=== PATIENT | female | born 1930 | race Caucasian/White ===

== ENCOUNTER 2018-10-28 09:37 | Outpatient (CLI) | END 2018-10-28 09:38 | disposition home or self-care (01) | LOC: AMBL 09:37 | PROVIDERS: ATTEND Internal Medicine Geriatric Medicine | DX: M25.562 Pain in left knee (principal) ==

== ENCOUNTER 2020-04-24 12:45 | Inpatient (IN) ==
[2020-04-24] MEDS ORDERED: MIRALAX PO PRN (14:47)
[2020-04-24 15:17] LABS: BASOPHILS % (AUTO) 0.3 % (0.0-3.0); EOSINOPHILS # (AUTO) 0.1 K/ul (0.0-0.7); EOSINOPHILS % (AUTO) 1.1 % (0.0-7.0); HEMATOCRIT 35.2 % (37.0-47.0); HEMOGLOBIN 11.5 g/dl (12.0-16.0); IMMATURE GRANULOCYTE # (AUTO) 0.1 (0.0-1.0); IMMATURE GRANULOCYTE % (AUTO) 0.5 % (0.0-5.0); LYMPHOCYTES # (AUTO) 1.2 K/uL (0.60-3.4); LYMPHOCYTES % (AUTO) 11.9 (10.0-50.0); MEAN CORPUSCULAR HGB CONC 32.7 (31.8-35.4); MEAN CORPUSCULAR VOLUME 100.9 fl (81.0-99.0); MONOCYTES # (AUTO) 0.6 K/uL (0.4-2.0); MONOCYTES % (AUTO) 5.8 (0-10); NEUTROPHILS # (AUTO) 8.1 K/ul (2.0-6.9); NEUTROPHILS % (AUTO) 80.4 % (42.2-75.2); PLATELET COUNT 245 10^3/uL (140-440); RDW COEFFICIENT OF VARIATION 14.6 % (11.6-14.8); RED BLOOD COUNT 3.49 10^6/ul (4.20-5.40); WHITE BLOOD COUNT 10.07 K/ul (4.6-10.2)
[2020-04-24 15:27] VITALS: BMI 21.7
[2020-04-24 15:30] LABS: ALANINE AMINOTRANSFERASE 12.6 U/L (0-35); ALBUMIN 3.28 g/dL (3.5-5.0); ALKALINE PHOSPHATASE 104.6 U/L (53-141); ASPARTATE AMINO TRANSFERASE 25.9 U/L (14-36); BILIRUBIN,TOTAL 0.56 mg/dL (0.2-1.3); BLOOD UREA NITROGEN 47.7 mg/dL (7-17); CALCIUM 10.36 mg/dL (8.4-10.2); CHLORIDE 103.4 mmol/L (98-107); CREATININE 2.15 mg/dL (0.60-1.30); GLUCOSE 90.5 mg/dL (74-106); POTASSIUM 3.77 mmol/L (3.5-5.1); SODIUM 140.2 mmol/L (134.5-145); TOTAL PROTEIN 6.51 g/dL (6.3-8.2)
--- NOTE | 2020-04-24 15:52 | DI ---
EXAM: Chest one view, frontal view only. HISTORY: Cough. COMPARISON: None. FINDINGS: The heart size is normal. Atherosclerotic calcifications are present. There is no pulmon augusto vascular congestion. The lungs are clear. No pleural effusion or pneumothorax is seen. No acut e osseous abnormality is identified. IMPRESSION: No acute cardiopulmonary process.
[2020-04-24 15:54] LABS: ERYTHROCYTE SEDIMENTATION RATE 23 mm/hr (0-20)
[2020-04-24] MEDS ORDERED: ELIQUIS PO ONE (16:00)
[2020-04-24 17:01] LABS: PARTIAL THROMBOPLASTIN TIME 23.4 SEC (23.9-40.0); PROTHROMBIN TIME 10.7 SEC (9.3-11.0)
[2020-04-24 17:33] LABS: BILIRUBIN,URINE Negative (NEGATIVE); CLARITY,URINE Slightly (CLEAR); COLOR,URINE Yellow (YELLOW); GLUCOSE, URINE (UA) Negative (NEGATIVE); KETONES,URINE Negative (NEGATIVE); LEUKOCYTE ESTERASE ,URINE 2+ (NEGATIVE); NITRITE,URINE Negative (NEGATIVE); PH,URINE 8.5 (5-9); PROTEIN,URINE 1+ (NEGATIVE); URINE, BLOOD Trace-intact (NEGATIVE); UROBILINOGEN,URINE 0.2 (0.2)
[2020-04-24 17:36] LABS: BACTERIA,URINE 2+ (NOT PRESENT); URINE WBC, MICROSCOPIC 30-50 (0-2)
[2020-04-24] MEDS: DEXTROSE 5%-1/2NS IV SOLUTION 1,000 ML IV SCH (18:01)
[2020-04-24] MEDS: [UNRECOGNIZED DRUG - OTHER] PO SCH (20:22)
[2020-04-24] MEDS: ELIQUIS PO SCH (20:22)
[2020-04-24] MEDS: NON-FORMULARY MEDICATION (Melatonin 5 mg Tablet) PO SCH (20:22)
[2020-04-25] MEDS: DEXTROSE 5%-1/2NS IV SOLUTION 1,000 ML IV SCH ×3 (04:38→22:51)
[2020-04-25] MEDS: LASIX TAB PO SCH (05:46)
[2020-04-25] MEDS: PROTONIX PO SCH (05:46)
[2020-04-25 05:59] LABS: ALBUMIN 2.85 g/dL (3.5-5.0); BLOOD UREA NITROGEN 37.9 mg/dL (7-17); CALCIUM 9.58 mg/dL (8.4-10.2); CARBON DIOXIDE 29.6 mmol/L (22-30.0); CHLORIDE 101.8 mmol/L (98-107); CREATININE 1.87 mg/dL (0.60-1.30); GLUCOSE 110.8 mg/dL (74-106); PHOSPHORUS 2.47 mg/dL (2.5-4.5); POTASSIUM 3.53 mmol/L (3.5-5.1); SODIUM 134.9 mmol/L (134.5-145)
[2020-04-25] MEDS ORDERED: CALMOSEPTINE OINTMENT TP PRN (06:24)
[2020-04-25] MEDS: NON-FORMULARY MEDICATION (Cranberry 500 mg Capsule) PO SCH (08:51)
[2020-04-25] MEDS: [UNRECOGNIZED DRUG - OTHER] PO SCH ×2 (08:51→21:03)
[2020-04-25] MEDS: DONEPEZIL 23 MG PO SCH (08:52)
[2020-04-25] MEDS: ELIQUIS PO SCH (08:55)
[2020-04-25] MEDS ORDERED: ARICEPT PO SCH (09:00)
--- NOTE | 2020-04-25 13:54 | NM ---
Exam: Perfusion scintigraphy Date of exam: 04/25/2020 Radiopharmaceutical: 5.1 mCi MAA i.v. Reason for exam: DVT left lower extremity FINDINGS: The comparison chest radiograph performed on 04/24/2020 demonstrates no pneumothorax or pleural effus ion. The perfusion images show multiple segmental and nonsegmental perfusion defects in both lungs. Impression: Critical finding/critical result: High likelihood ratio for pulmonary embolus. Findings were discussed directly with the patient's nurse at 1350 hours on 04/25/2020.
[2020-04-25] MEDS ORDERED: ELIQUIS PO SCH (21:00)
[2020-04-25] MEDS: NON-FORMULARY MEDICATION (Melatonin 5 mg Tablet) PO SCH (21:05)
[2020-04-25] MEDS: LOVENOX SUBCUT SCH (21:05)
[2020-04-26] MEDS: LASIX TAB PO SCH (05:58)
[2020-04-26] MEDS: PROTONIX PO SCH (05:58)
[2020-04-26] MEDS: NON-FORMULARY MEDICATION (Cranberry 500 mg Capsule) PO SCH (08:48)
[2020-04-26] MEDS: DONEPEZIL 23 MG PO SCH (08:48)
[2020-04-26] MEDS: [UNRECOGNIZED DRUG - OTHER] PO SCH ×2 (08:50→21:12)
[2020-04-26] MEDS: LOVENOX SUBCUT SCH ×2 (08:51→21:11)
[2020-04-26] MEDS: DEXTROSE 5%-1/2NS IV SOLUTION 1,000 ML IV SCH ×2 (10:57→21:59)
[2020-04-26] MEDS: NON-FORMULARY MEDICATION (Melatonin 5 mg Tablet) PO SCH (21:19)
--- NOTE | 2020-04-26 21:44 | CT ---
EXAM: Noncontrast chest CT HISTORY: Probable pulmonary embolism on nuclear medicine pulmonary perfusion scan COMPARISON: None available TECHNIQUE: Axial noncontrast CT of the chest with sagittal and coronal reformats. FINDINGS: There is mild patient motion artifact. The heart is mildly enlarged. Mild atherosclerotic calcifica tions are seen. No mediastinal lymphadenopathy is identified. Calcified mediastinal and left hilar lymph nodes are noted. Mild right middle lobe, lingular bilateral lower lobe atelectasis is identified. A left lower lobe c alcified granuloma is seen. No consolidation, pleural effusion or pneumothorax is identified. A gallstone is seen. There is a right adrenal nodule measuring 2.3 cm and 16 HU. A left renal infer ior pole cyst is present measuring 1.6 cm. Diverticulosis is partially imaged. There are mild degen erative changes of the thoracic spine. IMPRESSION: No acute cardiopulmonary findings. Mild atelectasis. No focal infiltrate. Mild cardiomegaly. Indeterminate right adrenal nodule. Follow-up adrenal mass protocol MRI or CT could further evaluate . Nondiagnostic evaluation for pulmonary emboli due to noncontrast technique.
[2020-04-27] MEDS: PROTONIX PO SCH (05:48)
[2020-04-27] MEDS: LASIX TAB PO SCH (05:48)
[2020-04-27] MEDS: [UNRECOGNIZED DRUG - OTHER] PO SCH ×2 (08:51→20:53)
[2020-04-27] MEDS: NON-FORMULARY MEDICATION (Cranberry 500 mg Capsule) PO SCH (08:52)
[2020-04-27] MEDS: DONEPEZIL 23 MG PO SCH (08:52)
[2020-04-27] MEDS: LOVENOX SUBCUT SCH ×2 (08:55→20:52)
[2020-04-27] MEDS: ROCEPHIN 1 GM/50 ML D5W 1 GM/50 ML BAG IV SCH (12:15)
[2020-04-27] MEDS: DEXTROSE 5%-1/2NS IV SOLUTION 1,000 ML IV SCH ×3 (12:16→23:26)
[2020-04-27] MEDS: NON-FORMULARY MEDICATION (Melatonin 5 mg Tablet) PO SCH (21:48)
[2020-04-28 04:25] LABS: BASOPHILS % (AUTO) 0.2 % (0.0-3.0); EOSINOPHILS # (AUTO) 0.1 K/ul (0.0-0.7); EOSINOPHILS % (AUTO) 1.1 % (0.0-7.0); HEMATOCRIT 27.7 % (37.0-47.0); HEMOGLOBIN 9.3 g/dl (12.0-16.0); IMMATURE GRANULOCYTE # (AUTO) 0.1 (0.0-1.0); IMMATURE GRANULOCYTE % (AUTO) 1.5 % (0.0-5.0); LYMPHOCYTES # (AUTO) 0.9 K/uL (0.60-3.4); LYMPHOCYTES % (AUTO) 18.9 (10.0-50.0); MEAN CORPUSCULAR HEMOGLOBIN 32.7 pg (27.0-31.0); MEAN CORPUSCULAR HGB CONC 33.6 (31.8-35.4); MEAN CORPUSCULAR VOLUME 97.5 fl (81.0-99.0); MONOCYTES # (AUTO) 0.5 K/uL (0.4-2.0); MONOCYTES % (AUTO) 10.8 (0-10); NEUTROPHILS # (AUTO) 3.2 K/ul (2.0-6.9); NEUTROPHILS % (AUTO) 67.5 % (42.2-75.2); PLATELET COUNT 229 10^3/uL (140-440); RDW COEFFICIENT OF VARIATION 14.1 % (11.6-14.8); RED BLOOD COUNT 2.84 10^6/ul (4.20-5.40); WHITE BLOOD COUNT 4.71 K/ul (4.6-10.2)
[2020-04-28 04:38] LABS: ALANINE AMINOTRANSFERASE 13.7 U/L (0-35); ALBUMIN 2.38 g/dL (3.5-5.0); ALKALINE PHOSPHATASE 84.4 U/L (53-141); ASPARTATE AMINO TRANSFERASE 22.8 U/L (14-36); BILIRUBIN,TOTAL 0.22 mg/dL (0.2-1.3); BLOOD UREA NITROGEN 14.6 mg/dL (7-17); CALCIUM 8.55 mg/dL (8.4-10.2); CARBON DIOXIDE 26.1 mmol/L (22-30.0); CHLORIDE 100.3 mmol/L (98-107); CREATININE 1.23 mg/dL (0.60-1.30); GLUCOSE 100.8 mg/dL (74-106); POTASSIUM 4.02 mmol/L (3.5-5.1); SODIUM 129.4 mmol/L (134.5-145); TOTAL PROTEIN 5.11 g/dL (6.3-8.2)
[2020-04-28] MEDS: LASIX TAB PO SCH (06:21)
[2020-04-28] MEDS: PROTONIX PO SCH (06:21)
[2020-04-28] MEDS: NON-FORMULARY MEDICATION (Cranberry 500 mg Capsule) PO SCH (09:52)
[2020-04-28] MEDS: DONEPEZIL 23 MG PO SCH (09:52)
[2020-04-28] MEDS: [UNRECOGNIZED DRUG - OTHER] PO SCH ×2 (09:53→20:34)
[2020-04-28] MEDS: LOVENOX SUBCUT SCH (09:54)
[2020-04-28] MEDS: DEXTROSE 5%-1/2NS IV SOLUTION 1,000 ML IV SCH ×3 (09:58→20:38)
[2020-04-28] MEDS: ROCEPHIN 1 GM/50 ML D5W 1 GM/50 ML BAG IV SCH (09:58)
[2020-04-28 11:18] LABS: OCCULT BLOOD SAMPLE 1 POSITIVE (NEGATIVE); OCCULT BLOOD SAMPLE 2 POSITIVE (NEGATIVE); OCCULT BLOOD SAMPLE 3 NO SPECIMEN RECEIVED (NEGATIVE)
[2020-04-28] MEDS: PROTONIX IV IVP SCH ×2 (11:47→20:44)
[2020-04-28 18:01] LABS: BASOPHILS % (AUTO) 0.2 % (0.0-3.0); EOSINOPHILS % (AUTO) 0.9 % (0.0-7.0); HEMATOCRIT 30.9 % (37.0-47.0); HEMOGLOBIN 10.3 g/dl (12.0-16.0); IMMATURE GRANULOCYTE % (AUTO) 0.7 % (0.0-5.0); LYMPHOCYTES % (AUTO) 21.8 (10.0-50.0); MEAN CORPUSCULAR HGB CONC 33.3 (31.8-35.4); MONOCYTES # (AUTO) 0.4 K/uL (0.4-2.0); MONOCYTES % (AUTO) 8.4 (0-10); PLATELET COUNT 239 10^3/uL (140-440); RDW COEFFICIENT OF VARIATION 14.4 % (11.6-14.8); RED BLOOD COUNT 3.12 10^6/ul (4.20-5.40); WHITE BLOOD COUNT 4.41 K/ul (4.6-10.2)
[2020-04-28 18:13] LABS: ALANINE AMINOTRANSFERASE 15.8 U/L (0-35); ALBUMIN 2.88 g/dL (3.5-5.0); ALKALINE PHOSPHATASE 106.4 U/L (53-141); ASPARTATE AMINO TRANSFERASE 25.1 U/L (14-36); BILIRUBIN,TOTAL 0.23 mg/dL (0.2-1.3); BLOOD UREA NITROGEN 12.2 mg/dL (7-17); CALCIUM 8.65 mg/dL (8.4-10.2); CHLORIDE 98.1 mmol/L (98-107); CREATININE 1.21 mg/dL (0.60-1.30); GLUCOSE 110.2 mg/dL (74-106); POTASSIUM 3.48 mmol/L (3.5-5.1); SODIUM 130.2 mmol/L (134.5-145); TOTAL PROTEIN 5.95 g/dL (6.3-8.2)
[2020-04-28] MEDS: NON-FORMULARY MEDICATION (Melatonin 5 mg Tablet) PO SCH (20:36)
[2020-04-29] MEDS: LASIX TAB PO SCH (05:56)
[2020-04-29] MEDS: ROCEPHIN 1 GM/50 ML D5W 1 GM/50 ML BAG IV SCH (09:34)
[2020-04-29] MEDS: NON-FORMULARY MEDICATION (Cranberry 500 mg Capsule) PO SCH (09:57)
[2020-04-29] MEDS: DONEPEZIL 23 MG PO SCH (09:57)
[2020-04-29] MEDS: PROTONIX IV IVP SCH ×2 (09:57→20:44)
[2020-04-29] MEDS: [UNRECOGNIZED DRUG - OTHER] PO SCH ×2 (10:03→20:45)
[2020-04-29] MEDS: DEXTROSE 5%-1/2NS IV SOLUTION 1,000 ML IV SCH (10:03)
[2020-04-29 12:34] LABS: OCCULT BLOOD SAMPLE 1 POSITIVE (NEGATIVE); OCCULT BLOOD SAMPLE 2 NO SPECIMEN RECEIVED (NEGATIVE); OCCULT BLOOD SAMPLE 3 NO SPECIMEN RECEIVED (NEGATIVE)
[2020-04-29] MEDS: NON-FORMULARY MEDICATION (Melatonin 5 mg Tablet) PO SCH (20:46)
[2020-04-30] MEDS: DEXTROSE 5%-1/2NS IV SOLUTION 1,000 ML IV SCH ×2 (00:01→15:33)
[2020-04-30 04:39] LABS: BASOPHILS % (AUTO) 0.2 % (0.0-3.0); EOSINOPHILS % (AUTO) 0.8 % (0.0-7.0); HEMATOCRIT 27.1 % (37.0-47.0); HEMOGLOBIN 9.4 g/dl (12.0-16.0); IMMATURE GRANULOCYTE % (AUTO) 0.6 % (0.0-5.0); LYMPHOCYTES # (AUTO) 0.8 K/uL (0.60-3.4); LYMPHOCYTES % (AUTO) 14.6 (10.0-50.0); MEAN CORPUSCULAR HEMOGLOBIN 33.1 pg (27.0-31.0); MEAN CORPUSCULAR HGB CONC 34.7 (31.8-35.4); MEAN CORPUSCULAR VOLUME 95.4 fl (81.0-99.0); MONOCYTES # (AUTO) 0.4 K/uL (0.4-2.0); NEUTROPHILS # (AUTO) 3.9 K/ul (2.0-6.9); NEUTROPHILS % (AUTO) 75.8 % (42.2-75.2); PLATELET COUNT 214 10^3/uL (140-440); RDW COEFFICIENT OF VARIATION 14.2 % (11.6-14.8); RED BLOOD COUNT 2.84 10^6/ul (4.20-5.40); WHITE BLOOD COUNT 5.15 K/ul (4.6-10.2)
[2020-04-30 04:52] LABS: ALANINE AMINOTRANSFERASE 13.4 U/L (0-35); ALBUMIN 2.32 g/dL (3.5-5.0); ALKALINE PHOSPHATASE 92.5 U/L (53-141); ASPARTATE AMINO TRANSFERASE 22.3 U/L (14-36); BILIRUBIN,TOTAL 0.22 mg/dL (0.2-1.3); BLOOD UREA NITROGEN 8.4 mg/dL (7-17); CALCIUM 8.41 mg/dL (8.4-10.2); CARBON DIOXIDE 25.5 mmol/L (22-30.0); CHLORIDE 99.7 mmol/L (98-107); CREATININE 1.05 mg/dL (0.60-1.30); GLUCOSE 97.6 mg/dL (74-106); POTASSIUM 3.44 mmol/L (3.5-5.1); SODIUM 127.1 mmol/L (134.5-145); TOTAL PROTEIN 5.01 g/dL (6.3-8.2)
[2020-04-30 05:26] LABS: FERRITIN 91.3 ng/mL (11.1-264.0)
[2020-04-30] MEDS: LASIX TAB PO SCH (06:11)
[2020-04-30] MEDS: LOVENOX SUBCUT SCH (09:53)
[2020-04-30] MEDS: PROTONIX IV IVP SCH ×2 (09:53→20:23)
[2020-04-30] MEDS: ROCEPHIN 1 GM/50 ML D5W 1 GM/50 ML BAG IV SCH (09:53)
[2020-04-30] MEDS: NON-FORMULARY MEDICATION (Cranberry 500 mg Capsule) PO SCH (10:11)
[2020-04-30] MEDS: DONEPEZIL 23 MG PO SCH (10:12)
[2020-04-30] MEDS: [UNRECOGNIZED DRUG - OTHER] PO SCH ×2 (10:12→20:27)
[2020-04-30] MEDS: NON-FORMULARY MEDICATION (Melatonin 5 mg Tablet) PO SCH (20:39)
[2020-05-01] MEDS: DEXTROSE 5%-1/2NS IV SOLUTION 1,000 ML IV SCH ×2 (04:47→04:51)
[2020-05-01] MEDS: LASIX TAB PO SCH (05:44)
[2020-05-01] MEDS ORDERED: ROCEPHIN 1 GM/50 ML D5W 1 GM/50 ML BAG IV ONE (09:30)
[2020-05-01] MEDS: DONEPEZIL 23 MG PO SCH (09:58)
[2020-05-01] MEDS: LOVENOX SUBCUT SCH (09:59)
[2020-05-01] MEDS: NON-FORMULARY MEDICATION (Cranberry 500 mg Capsule) PO SCH (09:59)
[2020-05-01] MEDS: [UNRECOGNIZED DRUG - OTHER] PO SCH (09:59)
[2020-05-01] MEDS: PROTONIX IV IVP SCH (11:06)
[2020-05-01 16:46] VITALS: BP 132/74; TEMP 97.9
--- NOTE | 2020-05-22 13:38 | HP ---
DATE OF SERVICE: 04/24/2020 CHIEF COMPLAINT: Swelling left leg. Positive for DVT per Doppler studies. SOURCE: Nurse at the group home. HISTORY OF PRESENT ILLNESS: The patient on 04/23/2020 was seen by me on rounds because of swelling of the left leg according to the nurse. The patient indeed has marked edema of the left leg and foot compared to the right. I ordered a Doppler studies but it could not be done until the next day. 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 She is not able to answer any questions but did not complain of any pain. The Doppler study is done on 04/24/2020 did show DVT and the patient was then admitted to [facility] for anti-coagulation. This patient is a DNR. I do not know when the swelling of the left leg began. PAST MEDICAL HISTORY: Senile dementia Dysphagia, unspecified GERD Generalized body weakness Bedfast MEDICATIONS: Miralax 17 gram powder packet to be dissolved in 8 oz of water once a day as needed Pantoprazole 40mg daily Melatonin 5mg tablet at HS. Remeron 7.5mg at bedtime decreased from 15 Vitamin D12 1000mcg intramuscularly every other day for 14 days Potassium 20meq tablet daily ALLERGIES: No known drug allergies REVIEW OF SYSTEMS: CONSTITUTIONAL: The patient is not able to answer questions except ask her whether she has pain and she say no. PHYSICAL EXAMINATION: GENERAL: 89 year old female with senile dementia is awake and does answer questions by yes or no. She did remember her birthday. She is not oriented to time, place and situation. She is not dyspneic or tachypneic with the left leg much bigger than the right and firm. The Doppler studies confirmed impression diagnosis of DVT. The patient is 5'1, weight 114 pounds and 10.2 ounces. BMI 21.7. VITAL SIGNS: Temperature 97.2 orally, heart rate 80, respiratory rate 16, blood pressure 100/60, oxygen saturation 100 at room air. HEAD: Unremarkable. Scalp has no active dermitis FACE: Symmetrical and equal with no facial weakness. No tenderness to palpation. EYES: Pupils are equal and reactive. NECK: No masses and no bruit CHEST: Essentially symmetrical and equal LUNGS: Breath sounds are slightly diminished but no rales or wheezing HEART: Audible and regular with good tones. ABDOMEN: Flat, soft with no remarkable tenderness. No guarding. No masses palpable and no bruit. LOWER EXTREMITIES: Asymmetrical with left much larger than right and somewhat firm. Right anterior tibial pulses palpable but the rest of the pedal pulses are not palpable. UPPER EXTREMITIES: Symmetrical and equal ASSESSMENT: 1. DVT, left lower extremity 2. Pulmonary emboli possible 3. Senile dementia 4. Bedfast 5. History of depression 6. History of GERD on medication PROGNOSIS: Poor TIME SPENT: GREATER THAN 65 MINUTES MTDD
--- NOTE | 2020-05-23 11:55 | PN ---
DATE OF SERVICE: 04/25/20 SUBJECTIVE: The patient was admitted 04/24/20 after the clinical diagnosis DVT was confirmed by Doppler studies. The patient was placed on 2.5 mg of Eliquis twice a day. The patient is not dyspneic or tachypneic. CT scan of the chest with PE protochol is not possible because of the renal abnormalities. GFR 25. VQ scan of the lung was then done and the result indicated a greater probability of pulmonary emboli. D. dimer was elevated. The patient however is not dyspneic or tachypneic. The oxygen saturation is still normal. Essentually unchanged and she remained afebrile. The Eliquis was then increased to 5 mg twice a day instead of 20 mg twice a day. Because of her age, the Eliquis was given at the lower dose. OBJECTIVE: LUNGS: Lungs are still clear. No signs of pulmonary decompensation. No dyspnea or tachypnea. HEART: Heart normal sinus rhythm. EXTREMITIES: Leg is slightly less swollen than yesterday. MTDD
--- NOTE | 2020-05-23 12:36 | PN ---
DATE OF SERVICE: 04/26/20 SUBJECTIVE: The patient remained alert, responsive to verbal commands and follows some verbal commands at times. It is not 100%. She does allow us to examine her. She seemed to be somewhat drowsy but arousable. OBJECTIVE: Her vital signs today @ 1:44 p.m.: Temperature 98 orally, pulse 74, blood pressure 111/58, respiratory rate 18, oxygen saturation 97 on room air. The physical examination is essentially the same. The right anterior tibial pulse is palpable. The swelling of the left leg is better. Skin is now somewhat wrinkled. MTDD
--- NOTE | 2020-05-23 12:46 | PN ---
DATE OF SERVICE: 04/27/20 SUBJECTIVE: The patient is alert and follows some verbal commands but nonverbal for any other problems. She denies any chest pain or abdominal pain. She is not dyspneic or tachypneic and without any cyanosis. She is not coughing. OBJECTIVE: V/S: Temperature today at 2 p.m. 04/27/20 97 orally, pulse 67, blood pressure 90/54, respiratory rate 16, oxygen saturation 92 at room air. LUNGS: Remain clear with diminished breath sounds. ABDOMEN: Soft. HEART: Normal sinus rhythm. LOWER EXTREMITY: Edema of the left less. Discussion was carried out with the PharmD of the hospital and she recommended changing the Eliquis to Lovenox at 1 mg/kg body weight. Eliquis was discontinued and was given Lovenox 40 mg twice a day instead of 70 mg daily or once a day. She is given subcutaneously. The patient's urinalysis was also abnormal and the patient was initiated on 1 gm of Rocephin intravenously daily. The patient's CBC recently showed a slightly elevated MCV and elevated MCH probably indicating some B12 deficiency or B complex deficiency. Lymphocyte was normal. She does have severe anemia or moderately severe anemia probably related to the B12. Hemoglobin had been declining while in the hospital and most likely due to hydration. Initial hemoglobin on admission was 12.4 and the day before discharge was 9.4. D. dimer on admission was elevated to 265, upper normal is 226. Covid- 19 PCR on 04/27/20 was negative. No further testing is done to this day 04/27/20. The patient's vital signs remain stable and the patient's condition also remains stable. [facility]
--- NOTE | 2020-05-23 12:54 | PN ---
DATE OF SERVICE: 04/28/20 SUBJECTIVE: The patient on routine care for cleaning was incidentally found to have bloody stools, bright and dark when the patient was rolled to the side. There is some irritation of both buttocks. Calmoseptine had been applied. Lovenox was then discontinued for further observation. The patient's general condition remained stable. Urine culture did grow Enterobacter Cloacae complex resistant to Amoxicillin/Clavulanate, Cefazolin, sensitive to Cefepim and Ceftriaxone, Cipro, Ertapenem. The patient is already receiving Cipro so it is being continued. The rest of the antibiotics tested also showed sensitivity except for Nitrofurantoin which is intermediate. MTDD
--- NOTE | 2020-05-23 13:03 | DS ---
DATE OF SERVICE: 05/01/2020 FINAL DIAGNOSES: 1. DVT left lower extremity, improving. 2. No clinical signs of PE. 3. VQ scan greater probability of PE. 4. SARS COVID 19 by RTPCR detected this was done 04/29/2020 initially it was negative on 04/25/2020. 5. Senile dementia 6. Urinary tract infection treated with Rocephin, enterococcus cloacae. BRIEF HISTORY OF PRESENT ILLNESS/HOSPITAL COURSE: 89 year old female who is a resident of [facility] because of senile dementia plus depression. The patient was noted by the nursing staff to have a marked swelling of the left lower extremity on 04/23/2020. I did exam the patient and ordered a Doppler studies to be done as soon as possible and could not be done on the same day. It was done on 04/24/2020 and did indicate deep venous thrombosis. The patient was then admitted to the hospital with a diagnosis of DVT left lower extremity for anticoagulation. The patient has been afebrile and her blood pressure was more or less normal and remained normal. Her appetite is low. The BUN was elevated and creatine was also elevated with a lower EGFR, 22. Calcium was slightly elevated probably secondary to dehydration, 10.36. Dehydrogenase is 265, amylase slightly about 226 and CPR was 20 upper normal is 10mg per liter. D-dimer was 10,000. The patient was initial given Eliquis 2.5mg twice a day because of her age. The patient on the following day 04/25/2020 did show a probable greater probability of pulmonary emboli by VQ scan. The Eliquis was then increased to 5mg twice a day. I had consulted the pharmacist the following day 04/26/2020 and she felt that this patient probable should be on Lovenox rather than Eliquis and indeed it was changed. She indicated that 1mg per kg. I did inform her that I would like to give it on a divided dose of the total dosage. The patient was given 30mg of Lovenox Q 12 hours SUBCUT. The patient's swelling of the legs continued to decrease and now the skin has some wrinkles. The patient had no episodes of bleeding until 04/28/2020. Her vital signs at this pointed remained stable with no fever. Hgb did go down to 9.3 from the initial value of 12.4. I felt that the decrease maybe due to hydration. Hgb on 04/28/2020 repeat was 1 gram per decaliter higher 9.3 to 10.3 in the same day. It did go back down to 9.4 on 04/30/2020. TIME SPENT: GREATER THAN 30 MINUTES MTDD
--- NOTE | 2020-05-23 13:12 | PN ---
DATE OF SERVICE: 04/29/20 SUBJECTIVE: The Lovenox was resumed but on a once a day schedule at 40 mg subcutaneously. The patient had no further GI bleeding. OBJECTIVE: The rectal examination on the day of bleeding showed no tumors in the rectum and no bright red blood. The patient is alert and follows verbal commands. The lungs remain clear. The heart is audible with good tones. The abdomen is soft. The swelling in the left lower extremity has decreased significantly. The anterior tibial pulse on the right remained palpable. The patient still has some redness on the buttocks on both sides toward the coccyx but no linette ulceration. I did ask for a repeat Covid-19 test prior [facility]. I did inform the nurse to call the [facility] about their policy of receiving patient's from the other facilities on how many days they are required to have a negative Covid or any testing for Covid. Initially it was 7 days. I felt that this patient needed to be tested since there are patient's at the [facility] that were Covid positive and indeed the patient was tested on 04/29/20. I did tell them to send it to [facility] or where they can have the results in no longer than 2 days from today. They decided to test her on a rapid mode and the patient was positive. The patient was then discharged to the Covid unit of the hospital for further observation. Covid by PCR was now detected which was not on 04/25. The patient's D. dimer also ordered the following day. Sed rate was slightly elevated on admission 04/24/20, 23 mm/hr, upper normal 20. EGFR yesterday 04/28/20 was slightly better 42, the highest since admission. Liver panel essentially normal. C-reactive protein was also ordered for the next day. This patient is transferred to the Covid Unit but no changes in the medication. No antiinflammatory medications were given to this individual at this time. We do not see any evidence of that at this time and the patient does not have any lung problems or any significant kidney problems that is deteriorating. MTDD
--- NOTE | 2020-05-23 13:17 | PN ---
DATE OF SERVICE: 04/30/20 SUBJECTIVE: The patient's CRP is elevated 3.44, range of normal is 0 to 3. The D. dimer today 04/30/20 is 6,967. The LDH is normal, the upper limit 221, upper normal is 226. Total protein and albumin is now slightly below normal. The AST and ALT remain normal. We had told her son, Raji Wright with regards with the psosible discharge tomorrow to the Covid Unit at the shelter. The patient seemed to be eating enough that hopefully she will continue to do well. Lungs remained clear. Heart was audible with good tones. No respiratory distress. If no significant clinical changes of this patient, this patient will be discharged back to the shelter. POOL
== END 2020-05-01 18:53 | DRG 176 ==
LOC: MEDSURG A 12:45 → MEDSURG B 04-29 19:53
PROVIDERS: ADMIT General Practice; ATTEND General Practice

== ENCOUNTER 2020-05-15 21:12 | Inpatient (IN) ==
[2020-05-15] MEDS ORDERED: PROTONIX IV IVP STA (21:31)
--- NOTE | 2020-05-15 21:34 | ED.PDOC ---
General ED Provider: Dr. FLAKITO MARTINEZ Chief Complaint: GI Bleed Stated Complaint: patient is an 89 year old female who is brought by EMS with noted low Hct at the senior living with bloody stool today. She is on Eliquis for DVT. PCP was notified and ordered patient to be sent to the Hospital for possibl e Transfusion. She is A DNR. Time Seen by Physician: 21:20 Mode of Arrival: Ambulance Information Source: Long Term, EMT and Nurse Exam Limitations: Dementia Primary Care Provider: GAYLA FOX MD Nursing and Triage Documentation Reviewed and Agree: Yes Does patient meet sepsis criteria?: No System Inflammatory Response Syndrome: Not Applicable Sepsis Protocol: For patient's 13 years and over: Temp is 96.8 and below OR 101 and greater Pulse >90 BPM Resp >20/minute Acutely Altered Mental Status Are patient's symptoms suggestive of a new infection, such as: -Pneumonia -Skin, Soft Tissue -Endocarditis -UTI -Bone, Joint Infection -Implantable Device -Acute Abdominal Infection -Wound Infection -Meningitis -Blood Stream Catheter Infection -Unknown Review of Systems Review Of Systems Constitutional: Reports No symptoms Respiratory: Reports No symptoms Cardiac: Reports No symptoms GI: Reports Rectal bleeding; Denies Abdominal pain Musculoskeletal: Reports No symptoms Skin: Reports No symptoms Neurological: Reports Cognitive dysfunction All Other Systems: Other (limited by Dementia ) [facility] Medical History Cognitive communication deficit Constipation, unspecified Dysphagia, unspecified Gastro-esophageal reflux disease without esophagitis Hypokalemia Muscle weakness (generalized) Nausea with vomiting, unspecified Need for assistance with personal care Other allergic and dietetic gastroenteritis and colitis Family History Other Family history unknown Social History Smoking and tobacco status: Unknown if ever smoked Physical Exam Physical Exam Appearance: Reports Well-appearing Pain Distress: None Eyes: Reports Conjunctiva pale ENT: Reports Dry mucosa Neck: Supple Respiratory: Reports Airway patent and Breath sounds clear Cardiovascular: Reports RRR and Pulses normal GI/: Reports Soft, Nontender and No masses Musculoskeletal: Reports Normal strength and ROM intact Skin: Reports Warm and Dry Neurological: Reports Alert and Disoriented Psychiatric: Reports Anxious Interpretation Radiology Interpretation Radiology Interpretation By: Radiologist Radiology Results: No acute changes ( Cholelithiasis. Diverticulosis without diverticulitis. Bilateral adrenal adenomas. Rectal wall thickening which is indeterminate and can be further evaluated with direct visualization) Exam Interpreted: CT Scan Physician Notification Case Discussed Physician Notified: Dr Ramey Time of Notification: 23:15 (admit after getting a CT abdomen and Pelvis ) Critical Care Note Critical Care Note Total Critical Care Time (mins): 0 Course Course Hematology/Chemistry: 05/15/20 21:45 05/15/20 21:45 Orders, Labs, Meds: Lab Review 05/15/20 05/15/20 05/15/20 21:45 21:45 21:45 WBC 9.36 RBC 3.27 L Hgb 10.4 L Hct 33.4 L MCV 102.1 H MCH 31.8 H MCHC 31.1 L RDW Coeff of Kimmy 15.0 H Plt Count 463 H Immature Gran % (Auto) 1.4 Neut % (Auto) 76.5 H Lymph % (Auto) 16.0 Appling % (Auto) 5.6 Eos % (Auto) 0.3 Baso % (Auto) 0.2 Neut # (Auto) 7.2 H Lymph # (Auto) 1.5 Appling # (Auto) 0.5 Eos # (Auto) 0.0 Baso # (Auto) 0.0 Immature Gran # (Auto) 0.1 PT 14.8 H INR 1.40 APTT 21.4 L Sodium 159.2 H Potassium 2.60 L* Chloride 115.7 H Carbon Dioxide 34.6 H Anion Gap 11.50 BUN 89.3 H* Creatinine 2.74 H Estimated GFR (MDRD) 16.00 BUN/Creatinine Ratio 32.59 Glucose 152.3 H Calcium 11.43 H Total Bilirubin 0.49 AST 38.4 H ALT 18.4 Alkaline Phosphatase 141.0 Total Protein 7.22 Albumin 3.52 Globulin 3.70 Albumin/Globulin Ratio 0.95 Stl Occult Blood (IFOB) Stool Occult Blood #2 Stool Occult Blood #3 Blood Type Antibody Screen 05/15/20 05/15/20 21:45 22:00 WBC RBC Hgb Hct MCV MCH MCHC RDW Coeff of Kimmy Plt Count Immature Gran % (Auto) Neut % (Auto) Lymph % (Auto) Appling % (Auto) Eos % (Auto) Baso % (Auto) Neut # (Auto) Lymph # (Auto) Appling # (Auto) Eos # (Auto) Baso # (Auto) Immature Gran # (Auto) PT INR APTT Sodium Potassium Chloride Carbon Dioxide Anion Gap BUN Creatinine Estimated GFR (MDRD) BUN/Creatinine Ratio Glucose Calcium Total Bilirubin AST ALT Alkaline Phosphatase Total Protein Albumin Globulin Albumin/Globulin Ratio Stl Occult Blood (IFOB) Positive Stool Occult Blood #2 Pending Stool Occult Blood #3 Pending Blood Type A NEGATIVE Antibody Screen Negative Orders Category Date Time Status INTAKE & OUTPUT Q8HR CARE 05/15/20 23:28 Active VITAL SIGNS Q4HR CARE 05/15/20 23:28 Active MECHANICAL SOFT DIET DIETARY 05/15/20 Breakfast Ordered REGULAR DIET DIETARY 05/15/20 Breakfast Ordered ED IV/MEDIPORT/POWERPORT .ONCE EMERGENCY 05/15/20 21:19 Active CBC W/ AUTO DIFF DAILY@0600 LAB 05/16/20 06:00 Ordered CBC W/ AUTO DIFF DAILY@0600 LAB 05/17/20 06:00 Ordered CBC W/ AUTO DIFF Stat LAB 05/15/20 21:45 Completed COMPREHENSIVE METABOLIC PANEL DAILY@0600 LAB 05/16/20 06:00 Ordered COMPREHENSIVE METABOLIC PANEL DAILY@0600 LAB 05/17/20 06:00 Ordered COMPREHENSIVE METABOLIC PANEL Stat LAB 05/15/20 21:45 Completed OCCULT BLOOD, STOOL Stat LAB 05/15/20 21:45 Results PARTIAL THROMBOPLASTIN TIME Stat LAB 05/15/20 21:45 Completed PT WITH INR Stat LAB 05/15/20 21:45 Completed TYPE AND SCREEN Stat LAB 05/15/20 22:00 Completed 0.9 % Sodium Chloride [Saline Flush] MEDS 05/15/20 21:19 Active 1 syr IVF PRN PRN Multivitamin [Multivitamin Tablet] MEDS 05/16/20 09:00 Active 1 tab PO DAILY Pantoprazole Sodium [Protonix IV] MEDS 05/15/20 23:45 Active 40 mg IVP Q12H Pantoprazole Sodium [Protonix IV] MEDS 05/15/20 21:31 Discontinued 80 mg IVP ONCE STA Polyethylene Glycol 3350 [Miralax] MEDS 05/15/20 23:31 Active 17 gm PO DAILY PRN Potassium Chloride/D5-0.45NACL [D5%-1/2Ns-KCl 10 Meq/l MEDS 05/15/20 23:35 Active IV Ernestina] 1,000 ml IV 100 mls/hr Potassium Chloride/D5-0.45NACL [D5%-1/2Ns-KCl 10 Meq/l MEDS 05/15/20 23:28 Discontinued IV Ernestina] 1,000 ml IV Per Protocol mls/hr Sodium Chloride 0.9% [Sodium Chloride] 500 ml MEDS 05/15/20 23:27 Discontinued IV BOLUS cranberry MEDS 05/16/20 09:00 Pending 500 mg PO DAILY donepezil MEDS 05/16/20 09:00 Pending 23 mg PO DAILY potassium bicarb-citric acid MEDS 05/16/20 09:00 Pending 20 meq PO BID RESUSCITATION STATUS Routine OTHERS 05/15/20 23:[address] ABDOMEN/PELVIS WO CONTRAST Stat RADS 05/15/20 23:15 Completed Medications Generic Name Dose Route Start Last Admin Trade Name Freq PRN Reason Stop Dose Admin Potassium Chloride/Dextrose/Sod Cl 1,000 mls @ 100 mls/hr 05/15/20 23:35 D5%-1/2ns-Kcl 10 Meq/L Iv Ernestina IV 05/16/20 09:27 .Q10H STA Multivitamins 1 tab 05/16/20 09:00 Multivitamin 1 Tab PO DAILY RAZ Non-Formulary Medication 500 mg 05/16/20 09:00 Cranberry PO DAILY RAZ Non-Formulary Medication 23 mg 05/16/20 09:00 Donepezil PO DAILY RAZ Non-Formulary Medication 20 meq 05/16/20 09:00 Potassium Bicarb-Citric Acid PO BID RAZ Pantoprazole Sodium 40 mg 05/15/20 23:45 Pantoprazole Sodium 40 Mg Vial IVP Q12H RAZ Polyethylene Glycol 17 gm 05/15/20 23:31 Polyethylene Glycol 17 Gm Powd.Pack PO DAILY PRN constipatin Sodium Chloride 1 syr 05/15/20 21:19 0.9% Sodium Chloride 10 Ml Disp.Syrin IVF PRN PRN To flush IV Discontinued Medications Generic Name Dose Route Start Last Admin Trade Name Freq PRN Reason Stop Dose Admin Sodium Chloride 500 mls @ 500 mls/hr 05/15/20 23:27 05/15/20 23:41 Sodium Chloride IV 05/16/20 00:26 500 mls/hr BOLUS STA Administration Potassium Chloride/Dextrose/Sod Cl 1,000 mls @ 0 mls/hr 05/15/20 23:28 D5%-1/2ns-Kcl 10 Meq/L Iv Ernestina IV 05/15/20 23:29 .Q0M STA Per Protocol Pantoprazole Sodium 80 mg 05/15/20 21:31 05/15/20 21:53 Pantoprazole Sodium 40 Mg Vial IVP 05/15/20 21:32 80 mg ONCE STA Administration Vital Signs: Temp Pulse Resp BP Pulse Ox 05/15/20 21:16 95.2 F L 101 H 18 134/84 99 Discharge Plan Discharge ED Provider: FLAKITO MARTINEZ Physician Progress Note: []
[2020-05-15 21:50] LABS: BASOPHILS % (AUTO) 0.2 % (0.0-3.0); EOSINOPHILS % (AUTO) 0.3 % (0.0-7.0); HEMATOCRIT 33.4 % (37.0-47.0); HEMOGLOBIN 10.4 g/dl (12.0-16.0); IMMATURE GRANULOCYTE # (AUTO) 0.1 (0.0-1.0); IMMATURE GRANULOCYTE % (AUTO) 1.4 % (0.0-5.0); LYMPHOCYTES # (AUTO) 1.5 K/uL (0.60-3.4); MEAN CORPUSCULAR HEMOGLOBIN 31.8 pg (27.0-31.0); MEAN CORPUSCULAR HGB CONC 31.1 (31.8-35.4); MEAN CORPUSCULAR VOLUME 102.1 fl (81.0-99.0); MONOCYTES # (AUTO) 0.5 K/uL (0.4-2.0); MONOCYTES % (AUTO) 5.6 (0-10); NEUTROPHILS # (AUTO) 7.2 K/ul (2.0-6.9); NEUTROPHILS % (AUTO) 76.5 % (42.2-75.2); PLATELET COUNT 463 10^3/uL (140-440); RED BLOOD COUNT 3.27 10^6/ul (4.20-5.40); WHITE BLOOD COUNT 9.36 K/ul (4.6-10.2)
[2020-05-15 22:04] LABS: PARTIAL THROMBOPLASTIN TIME 21.4 SEC (23.9-40.0); PROTHROMBIN TIME 14.8 SEC (9.3-11.0)
[2020-05-15 22:19] LABS: OCCULT BLOOD SAMPLE 1 POSITIVE (NEGATIVE)
[2020-05-15 22:31] LABS: ALANINE AMINOTRANSFERASE 18.4 U/L (0-35); ALBUMIN 3.52 g/dL (3.5-5.0); ASPARTATE AMINO TRANSFERASE 38.4 U/L (14-36); BILIRUBIN,TOTAL 0.49 mg/dL (0.2-1.3); CALCIUM 11.43 mg/dL (8.4-10.2); CARBON DIOXIDE 34.6 mmol/L (22-30.0); CHLORIDE 115.7 mmol/L (98-107); CREATININE 2.74 mg/dL (0.60-1.30); GLUCOSE 152.3 mg/dL (74-106); SODIUM 159.2 mmol/L (134.5-145); TOTAL PROTEIN 7.22 g/dL (6.3-8.2)
[2020-05-15] MEDS ORDERED: SODIUM CHLORIDE 500 ML IV STA (23:27)
[2020-05-15] MEDS ORDERED: D5%-1/2NS-KCL 10 MEQ/L IV SOL 1,000 ML IV STA ×2 (23:28→23:35)
[2020-05-15] MEDS ORDERED: MIRALAX PO PRN (23:31)
[2020-05-15] MEDS ORDERED: PROTONIX IV IVP SCH (23:45)
--- NOTE | 2020-05-16 00:21 | CT ---
EXAM: CT scan abdomen pelvis without contrast HISTORY: Positive occult stool COMPARISON: None. FINDINGS: Contiguous axial images obtained through the abdomen pelvis without contrast utilizing 3-m m collimation sagittal coronal reconstructions were imaged and reviewed. The ascending aorta is ecta tic measuring 3.2 cm. There is minimal left basilar atelectasis. Gallstones noted within the gallbla dder. The liver, pancreas and spleen have normal unenhanced CT appearance. There are likely bilater al adrenal adenomas measuring 1.4 cm on left and 2.5 cm on the right. Atherosclerotic changes are se en involving the aorta.. The kidneys are morphologically normal Diverticulosis without diverticulit is in the left colon. There is mild rectal wall thickening. No surrounding inflammatory changes or free fluid. Air is seen in the cervix. Calcification is seen in relation to the uterus.. Bone wind ows reveals no evidence of lytic or blastic lesions. Impression: Cholelithiasis. Diverticulosis without diverticulitis. Bilateral adrenal adenomas. Rectal wall thickening which is indeterminate and can be further evaluated with direct visualization
[2020-05-16 01:40] VITALS: BMI 17.9
[2020-05-16 05:03] LABS: BASOPHILS % (AUTO) 0.2 % (0.0-3.0); EOSINOPHILS % (AUTO) 0.5 % (0.0-7.0); HEMATOCRIT 27.5 % (37.0-47.0); HEMOGLOBIN 8.5 g/dl (12.0-16.0); IMMATURE GRANULOCYTE # (AUTO) 0.1 (0.0-1.0); IMMATURE GRANULOCYTE % (AUTO) 1.1 % (0.0-5.0); LYMPHOCYTES # (AUTO) 1.3 K/uL (0.60-3.4); LYMPHOCYTES % (AUTO) 16.1 (10.0-50.0); MEAN CORPUSCULAR HEMOGLOBIN 31.8 pg (27.0-31.0); MEAN CORPUSCULAR HGB CONC 30.9 (31.8-35.4); MONOCYTES # (AUTO) 0.5 K/uL (0.4-2.0); MONOCYTES % (AUTO) 6.6 (0-10); NEUTROPHILS # (AUTO) 6.1 K/ul (2.0-6.9); NEUTROPHILS % (AUTO) 75.5 % (42.2-75.2); PLATELET COUNT 361 10^3/uL (140-440); RED BLOOD COUNT 2.67 10^6/ul (4.20-5.40); WHITE BLOOD COUNT 8.05 K/ul (4.6-10.2)
[2020-05-16 05:16] LABS: ALANINE AMINOTRANSFERASE 14.9 U/L (0-35); ALBUMIN 2.8 g/dL (3.5-5.0); BILIRUBIN,TOTAL 0.45 mg/dL (0.2-1.3); CALCIUM 10.27 mg/dL (8.4-10.2); CHLORIDE 118.5 mmol/L (98-107); CREATININE 2.45 mg/dL (0.60-1.30); GLUCOSE 186.6 mg/dL (74-106); SODIUM 155.5 mmol/L (134.5-145); TOTAL PROTEIN 5.91 g/dL (6.3-8.2)
[2020-05-16 05:40] LABS: OCCULT BLOOD SAMPLE 2 NO SPECIMEN RECEIVED (NEGATIVE); OCCULT BLOOD SAMPLE 3 NO SPECIMEN RECEIVED (NEGATIVE)
[2020-05-16] MEDS: MULTIVITAMIN TABLET PO SCH (09:35)
[2020-05-16] MEDS: PROTONIX IV IVP SCH ×2 (09:41→20:13)
[2020-05-16] MEDS: NON-FORMULARY MEDICATION (Cranberry 500 mg Capsule) PO SCH (10:08)
[2020-05-16] MEDS: DONEPEZIL 23 MG PO SCH (10:09)
[2020-05-16] MEDS: [UNRECOGNIZED DRUG - OTHER] PO SCH ×2 (10:09→20:20)
[2020-05-16] MEDS: D5%-1/2NS-KCL 20 MEQ/L IV SOL 1,000 ML IV SCH (17:03)
[2020-05-17] MEDS: D5%-1/2NS-KCL 20 MEQ/L IV SOL 1,000 ML IV SCH ×2 (04:50→16:31)
[2020-05-17 05:29] LABS: BASOPHILS % (AUTO) 0.3 % (0.0-3.0); EOSINOPHILS # (AUTO) 0.1 K/ul (0.0-0.7); EOSINOPHILS % (AUTO) 1.5 % (0.0-7.0); HEMATOCRIT 26.1 % (37.0-47.0); HEMOGLOBIN 7.9 g/dl (12.0-16.0); IMMATURE GRANULOCYTE # (AUTO) 0.1 (0.0-1.0); IMMATURE GRANULOCYTE % (AUTO) 1.2 % (0.0-5.0); LYMPHOCYTES # (AUTO) 1.2 K/uL (0.60-3.4); LYMPHOCYTES % (AUTO) 15.9 (10.0-50.0); MEAN CORPUSCULAR HGB CONC 30.3 (31.8-35.4); MEAN CORPUSCULAR VOLUME 102.4 fl (81.0-99.0); MONOCYTES # (AUTO) 0.4 K/uL (0.4-2.0); MONOCYTES % (AUTO) 5.6 (0-10); NEUTROPHILS # (AUTO) 5.5 K/ul (2.0-6.9); NEUTROPHILS % (AUTO) 75.5 % (42.2-75.2); PLATELET COUNT 385 10^3/uL (140-440); RED BLOOD COUNT 2.55 10^6/ul (4.20-5.40); WHITE BLOOD COUNT 7.34 K/ul (4.6-10.2)
[2020-05-17 05:40] LABS: ALANINE AMINOTRANSFERASE 15.2 U/L (0-35); ALBUMIN 2.67 g/dL (3.5-5.0); ASPARTATE AMINO TRANSFERASE 28.3 U/L (14-36); BILIRUBIN,TOTAL 0.46 mg/dL (0.2-1.3); CALCIUM 9.94 mg/dL (8.4-10.2); CARBON DIOXIDE 30.2 mmol/L (22-30.0); CHLORIDE 117.1 mmol/L (98-107); CREATININE 1.99 mg/dL (0.60-1.30); GLUCOSE 133.8 mg/dL (74-106); POTASSIUM 2.88 mmol/L (3.5-5.1); SODIUM 151.4 mmol/L (134.5-145); TOTAL PROTEIN 5.68 g/dL (6.3-8.2)
[2020-05-17 05:48] LABS: BLOOD UREA NITROGEN 70.6 mg/dL (7-17)
[2020-05-17] MEDS: MULTIVITAMIN TABLET PO SCH (09:34)
[2020-05-17] MEDS: DONEPEZIL 23 MG PO SCH (09:34)
[2020-05-17] MEDS: NON-FORMULARY MEDICATION (Cranberry 500 mg Capsule) PO SCH (09:35)
[2020-05-17] MEDS: [UNRECOGNIZED DRUG - OTHER] PO SCH ×3 (09:39→20:27)
[2020-05-17] MEDS: PROTONIX IV IVP SCH ×2 (09:53→20:28)
[2020-05-18] MEDS: D5%-1/2NS-KCL 20 MEQ/L IV SOL 1,000 ML IV SCH (05:23)
[2020-05-18 05:44] LABS: BASOPHILS % (AUTO) 0.3 % (0.0-3.0); EOSINOPHILS # (AUTO) 0.1 K/ul (0.0-0.7); EOSINOPHILS % (AUTO) 1.6 % (0.0-7.0); HEMATOCRIT 23.4 % (37.0-47.0); HEMOGLOBIN 7.1 g/dl (12.0-16.0); IMMATURE GRANULOCYTE # (AUTO) 0.1 (0.0-1.0); IMMATURE GRANULOCYTE % (AUTO) 1.2 % (0.0-5.0); LYMPHOCYTES # (AUTO) 1.2 K/uL (0.60-3.4); LYMPHOCYTES % (AUTO) 18.6 (10.0-50.0); MEAN CORPUSCULAR HGB CONC 30.3 (31.8-35.4); MEAN CORPUSCULAR VOLUME 105.4 fl (81.0-99.0); MONOCYTES # (AUTO) 0.3 K/uL (0.4-2.0); MONOCYTES % (AUTO) 4.8 (0-10); NEUTROPHILS # (AUTO) 4.7 K/ul (2.0-6.9); NEUTROPHILS % (AUTO) 73.5 % (42.2-75.2); RDW COEFFICIENT OF VARIATION 15.2 % (11.6-14.8); RED BLOOD COUNT 2.22 10^6/ul (4.20-5.40); WHITE BLOOD COUNT 6.45 K/ul (4.6-10.2)
[2020-05-18 05:49] LABS: PLATELET COUNT 213 10^3/uL (140-440)
[2020-05-18 05:56] LABS: ALBUMIN 2.42 g/dL (3.5-5.0); ALKALINE PHOSPHATASE 79.5 U/L (53-141); ASPARTATE AMINO TRANSFERASE 43.1 U/L (14-36); BILIRUBIN,TOTAL 0.52 mg/dL (0.2-1.3); BLOOD UREA NITROGEN 53.2 mg/dL (7-17); CALCIUM 9.64 mg/dL (8.4-10.2); CARBON DIOXIDE 24.2 mmol/L (22-30.0); CHLORIDE 118.6 mmol/L (98-107); CREATININE 1.51 mg/dL (0.60-1.30); GLUCOSE 99.5 mg/dL (74-106); POTASSIUM 4.09 mmol/L (3.5-5.1); SODIUM 145.2 mmol/L (134.5-145); TOTAL PROTEIN 5.19 g/dL (6.3-8.2)
[2020-05-18] MEDS ORDERED: INFUVITE ADULT IV ONE (06:06)
[2020-05-18] MEDS: INFUVITE ADULT 10 ML in D5%-1/2NS-KCL 20 MEQ/L IV SOL 1,000 ML IV SCH (06:21)
[2020-05-18] MEDS: MULTIVITAMIN TABLET PO SCH (08:50)
[2020-05-18] MEDS: NON-FORMULARY MEDICATION (Cranberry 500 mg Capsule) PO SCH (08:51)
[2020-05-18] MEDS: DONEPEZIL 23 MG PO SCH (08:51)
[2020-05-18] MEDS: [UNRECOGNIZED DRUG - OTHER] PO SCH ×2 (08:51→20:03)
[2020-05-18] MEDS: PROTONIX IV IVP SCH ×2 (12:57→20:03)
[2020-05-19] MEDS ORDERED: INFUVITE ADULT IV ONE ×2 (00:21→16:44)
[2020-05-19] MEDS: INFUVITE ADULT 10 ML in D5%-1/2NS-KCL 20 MEQ/L IV SOL 1,000 ML IV SCH ×3 (00:26→17:01)
[2020-05-19 05:46] LABS: BASOPHILS % (AUTO) 0.1 % (0.0-3.0); EOSINOPHILS # (AUTO) 0.1 K/ul (0.0-0.7); EOSINOPHILS % (AUTO) 0.9 % (0.0-7.0); HEMATOCRIT 23.5 % (37.0-47.0); HEMOGLOBIN 7.3 g/dl (12.0-16.0); IMMATURE GRANULOCYTE # (AUTO) 0.1 (0.0-1.0); IMMATURE GRANULOCYTE % (AUTO) 1.3 % (0.0-5.0); LYMPHOCYTES # (AUTO) 1.3 K/uL (0.60-3.4); LYMPHOCYTES % (AUTO) 13.9 (10.0-50.0); MEAN CORPUSCULAR HEMOGLOBIN 31.7 pg (27.0-31.0); MEAN CORPUSCULAR HGB CONC 31.1 (31.8-35.4); MEAN CORPUSCULAR VOLUME 102.2 fl (81.0-99.0); MONOCYTES # (AUTO) 0.5 K/uL (0.4-2.0); MONOCYTES % (AUTO) 5.4 (0-10); NEUTROPHILS # (AUTO) 7.1 K/ul (2.0-6.9); NEUTROPHILS % (AUTO) 78.4 % (42.2-75.2); PLATELET COUNT 392 10^3/uL (140-440); RDW COEFFICIENT OF VARIATION 15.3 % (11.6-14.8); WHITE BLOOD COUNT 9.01 K/ul (4.6-10.2)
[2020-05-19 05:59] LABS: ALBUMIN 2.44 g/dL (3.5-5.0); ALKALINE PHOSPHATASE 98.2 U/L (53-141); BILIRUBIN,TOTAL 0.4 mg/dL (0.2-1.3); BLOOD UREA NITROGEN 41.5 mg/dL (7-17); CALCIUM 9.64 mg/dL (8.4-10.2); CARBON DIOXIDE 27.3 mmol/L (22-30.0); CHLORIDE 115.4 mmol/L (98-107); CREATININE 1.47 mg/dL (0.60-1.30); GLUCOSE 97.8 mg/dL (74-106); POTASSIUM 4.89 mmol/L (3.5-5.1); SODIUM 144.1 mmol/L (134.5-145); TOTAL PROTEIN 5.37 g/dL (6.3-8.2)
[2020-05-19] MEDS: [UNRECOGNIZED DRUG - OTHER] PO SCH ×2 (09:35→20:38)
[2020-05-19] MEDS: DONEPEZIL 23 MG PO SCH (09:35)
[2020-05-19] MEDS: MULTIVITAMIN TABLET PO SCH (09:35)
[2020-05-19] MEDS: NON-FORMULARY MEDICATION (Cranberry 500 mg Capsule) PO SCH (09:36)
--- NOTE | 2020-05-19 11:05 | DI ---
EXAM: Chest one view, frontal view only. HISTORY: Cough. COMPARISON: 04/26/2020. FINDINGS: Heart size is normal. Atherosclerotic calcifications present. There is no vascular conge stion. There is mild peribronchial thickening, greater on the left possibly accentuated by left-side d rotation. Left basilar calcified granuloma noted. No consolidation, pleural effusion or pneumotho rax detected. No acute osseous abnormality is seen. IMPRESSION: Mild peribronchial thickening consistent with airways inflammation. No pneumonia.
[2020-05-19] MEDS: PROTONIX IV IVP SCH ×2 (14:07→21:12)
[2020-05-20 05:51] LABS: BASOPHILS % (AUTO) 0.1 % (0.0-3.0); EOSINOPHILS # (AUTO) 0.1 K/ul (0.0-0.7); EOSINOPHILS % (AUTO) 0.9 % (0.0-7.0); HEMATOCRIT 23.2 % (37.0-47.0); HEMOGLOBIN 7.2 g/dl (12.0-16.0); IMMATURE GRANULOCYTE # (AUTO) 0.1 (0.0-1.0); IMMATURE GRANULOCYTE % (AUTO) 0.8 % (0.0-5.0); LYMPHOCYTES # (AUTO) 1.3 K/uL (0.60-3.4); LYMPHOCYTES % (AUTO) 15.2 (10.0-50.0); MEAN CORPUSCULAR HEMOGLOBIN 31.3 pg (27.0-31.0); MEAN CORPUSCULAR VOLUME 100.9 fl (81.0-99.0); MONOCYTES # (AUTO) 0.5 K/uL (0.4-2.0); MONOCYTES % (AUTO) 5.6 (0-10); NEUTROPHILS # (AUTO) 6.7 K/ul (2.0-6.9); NEUTROPHILS % (AUTO) 77.4 % (42.2-75.2); PLATELET COUNT 391 10^3/uL (140-440); RDW COEFFICIENT OF VARIATION 15.4 % (11.6-14.8)
[2020-05-20 06:06] LABS: ALANINE AMINOTRANSFERASE 23.3 U/L (0-35); ALBUMIN 2.34 g/dL (3.5-5.0); ALKALINE PHOSPHATASE 106.8 U/L (53-141); ASPARTATE AMINO TRANSFERASE 30.1 U/L (14-36); BILIRUBIN,TOTAL 0.36 mg/dL (0.2-1.3); BLOOD UREA NITROGEN 31.2 mg/dL (7-17); CALCIUM 9.69 mg/dL (8.4-10.2); CARBON DIOXIDE 24.6 mmol/L (22-30.0); CHLORIDE 117.1 mmol/L (98-107); CREATININE 1.46 mg/dL (0.60-1.30); GLUCOSE 77.9 mg/dL (74-106); POTASSIUM 5.39 mmol/L (3.5-5.1); SODIUM 141.6 mmol/L (134.5-145); TOTAL PROTEIN 5.24 g/dL (6.3-8.2)
[2020-05-20] MEDS: MULTIVITAMIN TABLET PO SCH (09:16)
[2020-05-20] MEDS: DONEPEZIL 23 MG PO SCH (09:16)
[2020-05-20] MEDS: NON-FORMULARY MEDICATION (Cranberry 500 mg Capsule) PO SCH (09:17)
[2020-05-20] MEDS: [UNRECOGNIZED DRUG - OTHER] PO SCH ×2 (09:18→21:03)
[2020-05-20] MEDS: PROTONIX IV IVP SCH (09:19)
[2020-05-20 17:29] LABS: OCCULT BLOOD SAMPLE 1 POSITIVE (NEGATIVE)
[2020-05-20] MEDS ORDERED: CALMOSEPTINE OINTMENT TP PRN (17:53)
[2020-05-20] MEDS: PROTONIX PO SCH (21:21)
[2020-05-21 00:15] LABS: OCCULT BLOOD SAMPLE 2 NO SPECIMEN RECEIVED (NEGATIVE); OCCULT BLOOD SAMPLE 3 NO SPECIMEN RECEIVED (NEGATIVE)
[2020-05-21] MEDS: INFUVITE ADULT 10 ML in D5%-1/2NS-KCL 20 MEQ/L IV SOL 1,000 ML IV SCH (00:42)
[2020-05-21] MEDS: PROTONIX PO SCH (05:45)
[2020-05-21 06:08] VITALS: BP 97/58; TEMP 97.5
[2020-05-21] MEDS: MULTIVITAMIN TABLET PO SCH (08:55)
[2020-05-21] MEDS: NON-FORMULARY MEDICATION (Cranberry 500 mg Capsule) PO SCH (08:57)
[2020-05-21] MEDS: DONEPEZIL 23 MG PO SCH (08:57)
[2020-05-21] MEDS: [UNRECOGNIZED DRUG - OTHER] PO SCH (08:57)
[2020-05-21] MEDS ORDERED: VITAMIN B-12 IM SCH (11:30)
[2020-06-22 07:04] LABS: BLOOD UREA NITROGEN 85.9 mg/dL (7-17); POTASSIUM 2.57 mmol/L (3.5-5.1)
[2020-06-22 07:06] LABS: POTASSIUM 2.6 mmol/L (3.5-5.1)
[2020-06-22 07:12] LABS: BLOOD UREA NITROGEN 89.3 mg/dL (7-17)
--- NOTE | 2020-08-12 08:26 | HP ---
DATE OF SERVICE: 05/16/2020 CHIEF COMPLAINT: Low Hgb and bloody stool HISTORY OF PRESENT ILLNESS: 89 year old female resident [facility] was noted to have a bloody stool. Her hgb and hct also were lower but not remarkably different from the previous. This patient is on anticoagulant because of left lower extremity DVT. The patient was then sent to the emergency room for evaluation. The patient's electrolytes were markedly abnormal with a sodium 155 and chlorides of 118, potassium 2.57, BUN 85.9, creatinine 2.45, EGFR 19. The patient was then admitted because multiple reasons 1 is GI bleeding, 2. anemia and 3. renal failure. The patient is admitted for hydration as well as monitoring GI bleed and possibly transfusion is the anemia progresses downhill to 7grams of hgb. 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 She had a confirmed DVT with swelling of the left lower extremity on 04/24/2020 by Doppler and was admitted on the same day for anticoagulation and discharged 05/01/2020. FAMILY HISTORY: The not able to provide any critical family history. MEDICATIONS: Potassium bicarbonate 20meq daily Polyethylene glycol 17 grams daily dissolve in 8 ounces of water Protonix 40mg daily Remeron 7.5mg daily Melatonin 5mg at bedtime Vitamin B 12 1000mcg IM every other day ALLERGIES: No known drug allergies. REVIEW OF SYSTEMS: CONSTITUTIONAL: No reports of fever, chills, nightsweats or weight changes. HEENT: No reports of headache, nasal drainage or sore throat. CARDIOVASCULAR: No reports of chest pain or irregular rhythm. No orthopnea or peripheral edema. RESPIRATORY: No complaints of any shortness of breath. Denies any cough or congestion. No lung disease. GASTROINTESTINAL: No reports of abdominal pain. Denies constipation. GENITOURINARY: MUSCULOSKELETAL: NEUROLOGIC: No reports of dizziness, any fatigue or neurological deficits. ENDOCRINE: INTEGUMENT: HEMATOLOGIC: PSYCHIATRIC: PHYSICAL EXAMINATION: GENERAL: 89 year old female who is not in acute distress, pale does follow verbal commands at times. VITAL SIGNS: Temperature 95.8, pulse 88, respiratory rate 16, oxygen saturation 100% at room air. 5'4 inches weighing 104 pounds and 8 ounces. BMI 17.9. HEAD: Unremarkable. Scalp no active dermatitis FACE: Symmetrical and equal with no facial weakness and no cyanosis EYES: Pupils are equal and reactive. Conjunctiva pale. Sclerae not icteric. NECK: No masses. No bruit CHEST: Symmetrical and equal with good expansion BREAST: Not examined LUNGS: Breath sounds are diminished in both sides with no wheezing HEART: Audible and regular with good tones, no murmurs ABDOMEN: Soft with no remarkable tenderness. No guarding. Bowel sounds are active. NO masses palpable. No bruit. EXTERNAL GENITALIA: Not examined LOWER EXTREMITIES: Left leg is much bigger than the right. The patient is known to have DVT in the left lower extremity on anticoagulation. Pedal pulses are not palpable. UPPER EXTREMITIES: Symmetrical and equal. RECTAL: Not rectal tumor. Not grossly bloody. Some blood but not totally mixed with the stool. ASSESSMENT: 1. Lower GI bleed 2. Moderately severe anemia, Megaloblastic hyperchromic 3. Senile dementia 4. DVT, left lower extremity recent 05/01/2020 on anticoagulation 5. Positive COVID test 04/29/2020, negative on admission 6. Cholelithiasis by CT scan of the abdomen on previous admission TIME SPENT: GREATER THAN 65 MINUTES MTDD
--- NOTE | 2020-08-12 08:57 | DS ---
DATE OF SERVICE: 05/21/2020 FINAL DIAGNOSES: 1. Severe anemia, megaloblastic hyperchromic 2. GI bleed, stop 3. Senile dementia 4. DVT left lower extremity 5. History of GERD 6. Chronic kidney disease stage 4 7. Frailty, old age 8. COVID positive as of 04/29/[address] scan BRIEF HISTORY OF PRESENT ILLNESS/HOSPITAL COURSE: 89 year old female admitted to the hospital by the emergency room because of GI bleeding and pallor. This patient had a DVT of the left lower extremity and was anticoagulated. The patient was evaluated in the emergency room and was found to have chronic kidney disease and maybe azotemia with elevated BUN and creatinine and low EGFR. The stool was some bright blood but not completely blood. The patient's physical examination was unremarkable except for being drowsy but arousable and alert and does answer questions but slow. LUNGS: Diminished breath sounds but no rales HEART: Normal sinus rhythm CAT Scan of the abdomen and pelvis done on 05/15/2020 while in the emergency room showed cholelithiasis, rectal wall thickening, Bilateral adrenal adenomas less than 2cm in size on the left and 2.5 on the right. Chest x-ray on 05/19/2020 showed no pneumonitis but some inflammation on the bronchials. The patient however remained afebrile throughout the hospital stay. Her hgb and hct did decrease but stabilized while in the hospital. No further active bleeding was noted while in the hospital and her vital signs remained stable although on the lower range. The patient's appetite was poor but has always been and had improved with the Remeron. Remeron maybe increased to 15mg. This patient was given intravenous Dextrose 5% in normal 0.5 saline plus 20KCL and was later given only Dextrose 5% and 0.5 saline when the potassium did rise to 5.39. She was also given an IV Protonix 40mg daily. The patient at discharge was alert, arousable. Not dysneic or tachypneic. VITALS: Temperature 97.5, blood pressure 97/58, pulse 77, respiratory rate 20, oxygen saturation 98% at room air. HEART: Normal sinus rhythm LUNGS: Diminished breath sounds ABDOMEN: nontender. Bowel sounds are active. The patient is returned to the [facility]. I had discussed this with Faustino Adriana. The patient on discharge is to resume Vitamin B12 injection, potassium bicarbonate 20meq daily, Remeron 7.5mg daily, Melatonin 5mg at bedtime, Pantoprazole 40mg at bedtime and Miralax PRN 17 grams. TIME SPENT: GREATER THAN 30 MINUTES MTDD
--- NOTE | 2020-08-12 09:00 | PN ---
DATE OF SERVICE: 05/16/2020 SUBJECTIVE: Temperature 96.1, pulse rate 80, respiratory rate 18, blood pressure 94/66 and oxygen saturation 98%. The patient is receiving Dextrose 5% 0.5 normal saline plus 20 KCL, 12 hours per 1000 and to repeat. A repeat CBC and CMP is ordered for the next day, 05/17/2020. The patient's appetite is poor, also drowsy. MTDD
--- NOTE | 2020-08-12 09:06 | PN ---
DATE OF SERVICE: 05/17/2020 SUBJECTIVE: The patient still is drowsy, sleepy and did not have any lunch but did drink some thickened liquids. General status is about the same. IV continued. The WBC today 05/17/2020 normal 7.34, RBC 2.55 less than yesterday, hgb 7.9, 8.5 yesterday, hct 26.1, MCV 102.4, MCH 31, 31.8 yesterday. LUNGS: Still has no rales but diminished breath sounds and the patient sometimes doesn't follow verbal commands. HEART: Normal sinus rhythm ABDOMEN: Nontender. Appetite has remained poor. MTDD
--- NOTE | 2020-08-12 09:13 | PN ---
DATE OF SERVICE: 05/18/2020 SUBJECTIVE: WBC remained normal and the RBC and Hgb is lower. Hgb now is 7.1 from 7.9 yesterday. RBC is 2.22, hct 23.4, MCV 105.4 and MCH 32 now above normal. The RDW is slightly elevated at 15.2 upper normal is 14.8. Her potassium now is up to normal 4.09, chloride is still elevated at 118 similar to admission. Sodium now is down to close to normal 145.2. Leukocytes remained within normal limits. The patient had no bowel movement and no bleeding per rectum. The patient is alert. Vital signs remained stable through the night. She does wake up but no oriented time to space and situation. IV is continued at the same rate. Repeat CBC and CMP was ordered for the next day as well as chest x-ray. The patient is not dyspneic nor tachypneic and no cyanosis. MTDD
--- NOTE | 2020-08-12 09:21 | PN ---
DATE OF SERVICE: 05/19/2020 SUBJECTIVE: The patient is alert and wakes up easily. Speech is clear but slow. She denies any pain and has some dark stool. LUNGS: still clear but good diminished breath sounds. HEART: Normal sinus rhythm ABDOMEN: Nontender and flat RBC is now 2.30 and it was 2.23 yesterday, hgb is 7.3 from 7.1, hct 23.5 from 23.4, MCV 102.2 and MCH 31.7. Plt count 392,000. VITALS: Temperature 97.2, blood pressure 89/59, pulse 66, respiratory rate 18, oxygen saturation 96 at room air. 104 pounds. Blood pressure are more or less in the lower normal but had remained afebrile. MTDD
--- NOTE | 2020-08-12 09:29 | PN ---
DATE OF SERVICE: 05/20/2020 SUBJECTIVE: The patient remained alert and arousable. Speech is slow. No facial weakness and no cyanosis. She has no respiratory distress symptoms. She denies any pain and does not have any cough and swallowing food. Her appetite is still poor and consumes about a quarter of the food. She has to be spoon fed in order for her to eat. VITAL SIGNS: Temperature 98, pulse 70, respiratory rate 18, blood pressure previously earlier in the morning was 100/50, oxygen saturation was 96%. Stools are somewhat black. Potassium today was higher 5.39 and so the potassium from the IV was removed. The patient on continued on Protonix. Stool were somewhat black. No significant bleeding is noted. WBC today is normal 8.60, RBC 2.30, hgb 7.2, hct 23.2, MCV 100.9, MCH 31.3, MCHC 31 slightly below and RDW slightly above normal 15.4. Sodium now has returned to normal and the potassium still slightly higher at 5.39. The potassium was removed from the IV. Chloride still slightly elevated probably because of the potassium that was added to the IV 117.1. The BUN is now down to 31.2 from a high of 89.3 and a creatinine is down to 1.46 from a high 2.74. The GFR remained below normal at 34. MTDD
== END 2020-05-21 13:26 | disposition home or self-care (01) | DRG 640 ==
LOC: ED 21:14 → MEDSURG A 05-16 00:02
PROVIDERS: ADMIT General Practice; ATTEND General Practice
DX: R71.0 Precipitous drop in hematocrit; I82.402 Acute embolism and thrombosis of unspecified deep veins of left lower extremity; Z79.01 Long term (current) use of anticoagulants; G31.1 Senile degeneration of brain, not elsewhere classified; K80.20 Calculus of gallbladder without cholecystitis without obstruction; D53.1 Other megaloblastic anemias, not elsewhere classified; E27.9 Disorder of adrenal gland, unspecified; N17.9 Acute kidney failure, unspecified; N18.4 Chronic kidney disease, stage 4 (severe); K21.9 Gastro-esophageal reflux disease without esophagitis; K57.90 Diverticulosis of intestine, part unspecified, without perforation or abscess without bleeding; K92.1 Melena; N32.89 Other specified disorders of bladder; E87.6 Hypokalemia; U07.1 COVID-19; R54 Age-related physical debility; Z51.81 Encounter for therapeutic drug level monitoring